=== PATIENT | male | born 2000 | race Caucasian/White ===

== ENCOUNTER 2021-01-07 10:07 | Emergency (ER) | payer OTHER, SELFPAY ==
[~2021-01-07] VITALS: Ht 185.4 cm; Wt 82.1 kg
[2021-01-07 10:09] VITALS: BP 117/74
--- NOTE | 2021-01-07 10:15 | NUR ---
Patient ambulated to bed 10. RN evaluating the patient at bedside.
--- NOTE | 2021-01-07 10:38 | NUR ---
DR JENNINGS AT BEDSIDE EVALUATING PT
[2021-01-07] MEDS ORDERED: KETOROLAC 30 MG/ML VIAL IVP ONE (10:40)
[2021-01-07] MEDS ORDERED: NACL 0.9% 1,000 ML IV SCH (10:40)
--- NOTE | 2021-01-07 10:44 | NUR ---
20 YEAR OLD MALE COMPLAINS OF ABDOMINAL PAIN X 2 DAYS. PT ALSO STATES NAUSEA, VOMITTING, BUT NO BLOOD. PT DENIES DIARRHEA. PT BOWEL SOUNDS NORMOACTIVE, NONTENDER. PT ALSO COMPLAINS OF SORE THROAT THAT RADIATES TO EAR, DENIES COUGH. AOX4, BREATHING EVEN AND UNLABORED, SKIN WARM AND DRY. BED IN LOWEST POSITION, LOCKED, BED RAIL UPX1. PMH - ASTHMA ALLERGIES - NKA
--- NOTE | 2021-01-07 10:57 | NUR ---
GARY, NOVEL, AND FLU SWAB SENT TO LAB
--- NOTE | 2021-01-07 11:01 | NUR ---
RAD AT BEDSIDE
[2021-01-07 11:08] LABS: BASOPHILS # (AUTO) 0.1 K/uL (0.00-0.22); BASOPHILS % (AUTO) 0.5 % (0.0-2.0); HEMATOCRIT 40.4 % (36-52); HEMOGLOBIN 13.8 g/dL (12.0-18.0); LYMPHOCYTES % (AUTO) 5.3 % (20.5-51.1); MEAN CORPUSCULAR HEMOGLOBIN 30 pg (27-31); MEAN CORPUSCULAR HGB CONC 34 g/dL (33-37); MEAN CORPUSCULAR VOLUME 87.1 fL (80-94); MONOCYTES # (AUTO) 1.7 K/uL (0.8-1.0); MONOCYTES % (AUTO) 9.3 % (1.7-9.3); NEUTROPHILS # (AUTO) 15.4 K/uL (1.8-7.7); NEUTROPHILS % (AUTO) 84.9 % (42.2-75.2); PLATELET COUNT (AUTO) 223 K/uL (140-450); RED BLOOD CELL COUNT(AUTO) 4.63 MIL/uL (4.20-6.10); RED CELL DISTRIBUTION WIDTH 13.1 % (11.6-13.7); WHITE BLOOD COUNT (AUTO) 18.1 K/uL (4.8-10.8)
[2021-01-07 11:20] LABS: ALBUMIN 4.3 g/dL (3.4-5.0); ANION GAP 14.7 (8-16); CARBON DIOXIDE 23.6 mmol/L (21-32); CREATININE 1.5 mg/dL (0.6-1.3); POTASSIUM 3.3 mmol/L (3.5-5.1); TOTAL BILIRUBIN 1.9 mg/dL (0.0-1.0)
[2021-01-07 12:52] LABS: APPEARANCE,URINE CLEAR (CLEAR); BILIRUBIN,URINE NEGATIVE (NEGATIVE); BLOOD, URINE NEGATIVE (NEGATIVE); COLOR,URINE YELLOW (YELLOW); LEUKOCYTE ESTERASE ,URINE NEGATIVE (NEGATIVE); NITRITE, URINE NEGATIVE (NEGATIVE); PH,URINE 8.5 (5.0-9.0); UGLUCOSE NEGATIVE (NEGATIVE)
[2021-01-07 13:01] LABS: RBC,URINE 0-5 /HPF (0-5); WBC,URINE 0-5 /HPF (0-5)
--- NOTE | 2021-01-07 13:39 | NUR ---
Dr. Pardo is evaluating the patient at bedside.
[2021-01-07] MEDS ORDERED: IBUP-2213 PO (13:51)
[2021-01-07] MEDS ORDERED: ONDA8TAB87 PO (13:51)
[2021-01-07] MEDS ORDERED: PRED20TA5 PO (13:51)
[2021-01-07 14:04] VITALS: BP 114/58
--- NOTE | 2021-01-07 14:04 | NUR ---
Patient discharged with v/s stable. Written and verbal after care instructions given and explained. Patient alert, oriented and verbalized understanding of instructions. Ambulatory with steady gait. All questions addressed prior to discharge. ID band removed. Patient advised to follow up with PMD. Rx of IBUPROFEN, ZOFRAN, DELTASONE given. Patient educated on indication of medication including possible reaction and side effects. Opportunity to ask questions provided and answered.
== END 2021-01-07 14:04 | disposition home or self-care (01) ==
LOC: MED 10:07
DX: B34.9 Viral infection, unspecified (principal); Z20.822 Contact with and (suspected) exposure to COVID-19; J45.909 Unspecified asthma, uncomplicated
CPT/HCPCS: 71045; 76705; 80053; 81001; 83605; 83690; 85025; 87086; 87426; 87804; 96361; 96374; 99285; J1885; J7030; U0003